=== PATIENT | male | born 1990 | race Caucasian/White ===

== ENCOUNTER → 2023-10-11 | Outpatient (CLI) | payer OTHER, SELFPAY ==
--- NOTE | 2023-10-11 11:40 | RAD_ITS ---
INDICATION: SOB EXAMINATION/TECHNIQUE: X-RAY - XR Chest 2 Views COMPARISON: No relevant prior comparison study available FINDINGS: LINES/DEVICES: None. LUNGS: No consolidation, edema or effusion. No pneumothorax. MEDIASTINUM AND CARDIOVASCULAR STRUCTURES: Cardiac silhouette not enlarged. Central airways and mediastinal contour are unremarkable. BONES AND SOFT TISSUES: Unremarkable. RAD/Chest PA and Lateral IMPRESSION: No radiographic evidence of acute cardiopulmonary disease. Electronically Signed: Mariusz Lewis MD at 13:21 EDT ,
== END | disposition home or self-care (01) ==
PROVIDERS: Referring Provider Chiropractor; Visit Provider Chiropractor
DX: R06.02 Shortness of breath (principal)
CPT/HCPCS: 71046; 94060; 94726; 94729